=== PATIENT | female | born 1995 | race Caucasian/White ===

== ENCOUNTER 2016-12-10 12:40 | Inpatient (IN) | payer OTHER ==
[~2016-12-10] VITALS: Ht 165.1 cm; Wt 58.5 kg
[~2016-12-10 12:40] MED LIST: NOMED
[2016-12-10] MEDS ORDERED: Carboprost 250 mCg/mL Inj IM PRN ×2 (13:40→17:50)
[2016-12-10] MEDS ORDERED: Sodium Chloride LOK Flush 10 mL Syringe IVFLUSH PRN (13:40)
[2016-12-10] MEDS ORDERED: Ondansetron 2 mg/mL 2 mL Inj IVPUSH PRN ×3 (13:40→16:30)
[2016-12-10] MEDS ORDERED: Methylergonovine 0.2 mg/mL Inj IM PRN ×2 (13:40→17:50)
[2016-12-10] MEDS ORDERED: Hemorrhage Kit, Post Partum XX ONE ×2 (13:40→17:50)
[2016-12-10] MEDS ORDERED: Lactated Ringer's 1,000 ML IV PRN (13:40)
[2016-12-10] MEDS ORDERED: Oxytocin 10 Unit/mL Inj IM PRN ×2 (13:40→17:50)
[2016-12-10] MEDS ORDERED: Oxytocin 30 Units/500 mL LR 30 UNITS in IV Premix 1 EACH IV PRN ×2 (13:40→17:50)
[2016-12-10 13:44] LABS: Mean Corpuscular Hemoglobin 29.3 pg (27.0-35.0); Mean Corpuscular Volume 89.3 fL (81-100)
[2016-12-10] MEDS ORDERED: Lactated Ringer's 500 ML IV ONE (13:45)
[2016-12-10] MEDS ORDERED: EPHEDrine Sulfate 50 mg/mL Inj IVPUSH PRN (13:45)
[2016-12-10] MEDS ORDERED: Atropine 1 mg/10 mL (Code) Syringe IVPUSH PRN (13:45)
[2016-12-10] MEDS ORDERED: fentaNYL 2 mCg/mL-Bupiv 0.125% 100 ML EPIDURAL SCH (13:45)
[2016-12-10] MEDS ORDERED: fentaNYL-PF 50 mCg/mL 2 mL Inj ONE (14:15)
[2016-12-10] MEDS: Lactated Ringer's 1,000 ML IV SCH ×2 (14:44→16:18)
--- NOTE | 2016-12-10 15:01 | PCM.HPANE ---
Patient Data Date of Service: Dec 10, 2016 Surgeon Admitting Provider:Matty Smith MD Attending Provider:Matty Smith MD Primary Care Physician:Johnathan Banerjee MD Other Provider:Andres Timmons Anesthesia Reason for Visit Term Labor TERM LABOR Ht/WT & BMI Height (Centimeters): 165 Weight (Kilograms): 58.5 Body Mass Index 21.5 Allergies Coded Allergies: No Known Allergies (Verified Allergy, Unknown, 04/06/16) Past Anesthesia History Anesthesia History: Denies:: Fam Anesthesia Reaction, Fam Malignant Hypertherm , Malignant Hyperthermia Diabetes History Hx Diabetes?: No MRSA MRSA: No Medications Hypertension Medication: No Home Meds Incl Beta Deven: No Reported Medications No Historical Medication Ea 08/27/12 History History of ENT Problems?: No Hx of Heart Problems?: No Cardiovascular History: Denies:: Congestive Heart Failure Hypertension Hx of Respiratory Problem?: No Respiratory History: Denies:: Tuberculosis Hx Neurologic Problems?: No Hx of GI Problems?: No Hx of Problems?: No Female Hx: Positive for:: Currently Hx Musculoskeletal Problems?: Yes Hx of Psycho/Social Problems?: Yes Psycho Social History: Positive for:: Bipolar Disorder (per family) Denies:: Anxiety Hx Depression Suicide Attempt Hx Surgeries?: Yes Hx Any Other Health Problems?: No Other History: Denies:: Cancer Endocrine Disease Hospitalization Thyroid Disease Hx Diabetes: No Hx Alcohol Use: NoHx Substance Use: Yes (marijuana) Smoking Status: Current Every Day Smoker Have You Smoked inLast 12 mo: Yes Stop/Bang MONICA Risk Assessment: Low Risk, <3 Yes Risk Assessment Category Category 1A: Patient has history of documented sleep apnea, and HAS NOT received any narcotic, sedative or anesthesia administration during this stay. Category 1B: Patient has history of documented sleep apnea, and HAS received any narcotic , sedative or anesthesia administration during this stay Category 2: Patient has SUSPECTED Obstructive Sleep Apnea, and HAS received any narcotic , sedative or anesthesia administration during this stay. Category 3: Patient has SUSPECTED Obstructive Sleep Apnea and HAS NOT received narcotic, sedative or anesthesia administration during this stay. Category 4: Outpatient in Procedural Areas with known sleep apnea or who screen positive for High Risk via the STOP/BANG questionnaire. Exam Exam General Appearance: Alert, Oriented X3, Cooperative HEENT/AIRWAY: Neck Movement (wnl), Mouth Opening (Wide) Lungs: Clear to Auscultation Heart: Regular Rate/Rhythm, Normal S1, Normal S2 Meds/Labs/Diagnostics Labs Test 12/10/16 13:34 White Blood Count 9.4th/mm3 (3.8-10.1) Red Blood Count 3.82mil/mm3 (3.90-5.20) Hemoglobin 11.2g/dL (12.0-15.6) Hematocrit 34.1% (35.0-46.0) Mean Corpuscular Volume 89.3fL (81-100) Mean Corpuscular Hemoglobin 29.3pg (27.0-35.0) Mean Corpuscular Hemoglobin Concent 32.8% (32.0-37.0) Red Cell Distribution Width 13.4% (12.3-15.4) Platelet Count 284bil/L (150-400) Plan Impression Patient chart reviewed, patient interviewed and anesthestic plan with risks, benefits, and alternatives discussed, and informed consent obtained. NPO Status: confirmed before mn ASA Physical Status: ASA2 Mod Systemic Disease Anesthetic Plan: Epidural Bene/Risks/Altern/Consents: Yes HP Complete Prior to Induction: Yes Maurice Verde MD Dec 10, 2016 13:48
[2016-12-10] MEDS ORDERED: Sodium Chloride LOK Flush 10 mL Syringe IVFLUSH SCH (16:30)
--- NOTE | 2016-12-10 16:58 | PCM.HPOB ---
Subjective Date of Service: Dec 10, 2016 Referring Provider: Admitting Physician: Matty Smith MD Primary Care Physician: Johnathan Banerjee MD Attending Physician: Matty Smith MD Chief Complaint Term History of Present History of Present Illness 21 y/o female at 38+ weeks per 25wk ultrasound on 09/14/16 presenting to the [facility] with contractions after SROM around 11:00am. complicated by late entry to care at 31wks, chlamydia infection (10/24/16) with questionable compliance with treatment, difficult social situation and marijuana use. Per the patient's family she has a history of Bipolar disorder, patient denies. UDS on 09/25/16 positive for cannabis and opiates with repeat UDSx2 positive only for cannabis. Admission UDS positive for cannabis only. She [facility] on 11/27/16 at 36wks 2days and received letters for several missed appointments. Patient declined pelvic exam and pap at time of GBS swab.GBS is negative. Per chart review the patient contemplated adoption and the father of the baby did not want her to proceed. FOB tested positive for chlamydia, was not treated and patient endorsed having intercourse with him after he was released from [facility] [facility]. She states that she completed the second course of antibiotics and has stopped her relationship with the FOB. Labs: Blood type: A Rh (D) type positive Antibody screen negative GBS negative Varicella and Rubella immune RPR- nonreactive HBsAg- negative HIV screen- nonreactive GTT negative HbA1c 5.3 TSH 1.040 UDS +Cannabis & opiates with repeat UDS +for Cannabis only . OB History: (1), Para (0) Obstetrical Complications: Other (Late presentation to care, +chlamydia w/poor compliance w/treatment, tobacco/marijuana use & difficult social situation) Past Medical History Obstetrical History: None Gynecologic History: Positive for Chlamydia during Medical History: Substance abuse Left, 5th metacarpal shaft fracture Surgical History: ORIF Left, 5th metacarpal shaft fracture. February 2016 Irrigation & non-excisional debridement of Left hand open wound Social History: Lives alone in [place]. Mother is present and supportive. May move in with her mother . Works part-time cleaning homes Reports marijuana use Denies tobacco,EtOH or other illicit substances. Hx Tobacco Use: No Smoking Status: Former Smoker Hx Alcohol Use: No Hx Substance Use: Yes (Clinic- UDS+Cannabis, admission UDS+Cannabis) Past Family History Family History Father- Basal cell carcinoma Mother- Diabetes mellitus Living Arrangement: Alone Genetic Screening/Counseling Genetic Screening/Counseling: Negative Baby father-had child w defect: No Review of Systems Constitutional: Y: Pain, Fever Eyes: Denies: Vision Changes ENT: Denies: Nasal Congestion, Ulcers/Sores in Mouth Cardiovascular: Denies: Chest Pain, Edema Respiratory: Denies: Cough Gastrointestinal: Reports: Nausea, Denies: Vomiting Genitourinary: Denies: Dysuria, Hematuria Skin: Reports: Scars Neurological: Denies: Confusion, Dizziness Medications Home medications 28mg iron-800mcg, PO daily Ferrous sulfate 325mg, PO daily Allergy Coded Allergies: No Known Allergies (Verified Allergy, Unknown, 04/06/16) Exam Vital Signs Temp 36.0, BP 134/82, HR 64 Exam 130bpm. Moderate variability. Accelerations present. One early deceleration noted. Category 1 tracing. Constitutional: Well-developed HEENT: Atraumatic, Mucous Membr Moist/[place] Lungs: Clear to Auscultation Heart: Regular Rate/Rhythm Abdomen: Gravid, Normal bowel sounds Extremities: Pulses Palpable x4, Edema Skin: Other (hyperpigmented macules of varying sizes scattered on upper/lower extremities. ) Neurological/Psychiatric: Alert, Oriented X3, Cooperative Neuro: Grossly Neurologically Intact Labs/Diagnostics Labs White Blood Count 9.4, Red Blood Count 3.82, Hgb 11.2, Hct 34.1, MCV 89.3, Plt Count 284 Labs: Blood type: A Rh (D) type positive Antibody screen negative GBS negative Varicella and Rubella immune RPR- nonreactive HBsAg- negative HIV screen- nonreactive GTT negative HbA1c 5.3 TSH 1.040 UDS +Cannabis & opiates with repeat UDS +for Cannabis only [facility] OB Ultrasound (09/14/16)- Single, live intrauterine gestation measuring 25wks 5days. VERNON 12/23/16. Repeat Ultrasound for SGA (11/20/16)- Single, live intrauterine gestation in vertex presentation and no placental previa. EGA from first dating scan (09/14/16): 35wks 2days EGA from repeat scan (11/20/16): 34wks 0days . Maternal Blood Type: A Hx Rho(D) Immune Globulin: Yes Group B Strep Results: Negative Rubella: Immune Lab History: Negative for: Hx Chicken Pox, Hx Gonorrhea, Hx HIV, Hx Syphilis Additional Information Positive Chlamydia 10/24/16 OB Intrapartum Assessment/Plan Assessment 21y/o at 38+ weeks per ultrasound (09/14/16) who presented with contractions and SROM. complicated by limited care, marijuana use, chlamydia infection with questionable compliance with treatment, and difficult social situation. Found to be 3-4cm dilated, 95% effaced and -1 station in OB triage. Now s/p Epidural with anticipated . status is reassuring. Pain Management: Epidural Pain Evaluation: Adequate Pain Control (Epidural ) Post plan: Continue routine post care (Consider SW consult, pt declined resources in outpatient setting. ) Attending Statement 1. UDS ordered. 2. Social work consultation planned. 3. GC/CT swab collected upon arrival. 4. Active labor - anticipate . 5. Epidural per anesthesia. I saw the patient and agree with the above H&P. / MD Tino Dodd Courtney M DO Dec 10, 2016 14:30 Matty Smith MD Dec 10, 2016 18:08
[2016-12-10] MEDS ORDERED: Lactated Ringer's 1,000 ML IV SCH (17:49)
[2016-12-10] MEDS ORDERED: Witch Hazel-Glycerin Pads TOPICAL PRN (17:50)
[2016-12-10] MEDS ORDERED: LANOlin HPA 7 Gm Ointment TOPICAL PRN (17:50)
[2016-12-10] MEDS ORDERED: HYDROcodone-APAP 5-325 mg Tablet PO PRN (17:50)
[2016-12-10] MEDS ORDERED: Benzocaine (Dermoplast) 20% 60 Gm Spray TOPICAL PRN (17:50)
--- NOTE | 2016-12-10 18:04 | PCM.OBVAG ---
Vaginal Delivery Date of Service Dec 10, 2016 Pre Operative Diagnosis Pre Operative Diagnosis 1. 38w1d gestation in active labor 2. Cannaboid use 3. Bipolar d/o 4. Chlamydia during Post Operative Diagnosis Post Operative Diagnosis 1. 38w1d gestation in active labor 2. Cannaboid use 3. Bipolar d/o 4. Chlamydia during Procedure Obstetical Procedure: Normal Spontaneous Vaginal Delivery Education Finance Processor/Swiss Machinist Provider and Swiss Machinist: MD Pam Hernandez, DO, HO1 Indication for Procedure Indication for Procedure 21 y/o female at 38 weeks 1 day per 25wk ultrasound on 09/14/[address] [facility] with contractions after SROM around 11:00am. complicated by late entry to care at 31wks, chlamydia infection (10/24) with questionable compliance with treatment, difficult social situation and marijuana use. Per the patient's family she has a history of Bipolar disorder, patient denies. UDS on 09/25/16 positive for cannabis and opiates with repeat UDSx2 positive only for cannabis. Admission UDS positive for cannabis only. She [facility] last seen [facility] on 11/27/16 at 36wks 2days and received letters for several missed appointments. Patient declined pelvic exam and pap at time of GBS swab.GBS is negative. She arrived to L&D ruptured in active labor on 12/10/2016. She progressed normally through labor and was found to be complete. Findings Findings: Small bilateral labial lacerations, superficial not requiring repair. No cervical lacerations. Obstetrical Findings: (Male), Cord (3 Vessel), Weight (2820 grams), Presentation (Vertex), 1 minute (8), 5 minutes (9), Placenta (Intact/Normal), Perineal Laceration (None) Analgesia/Medications Obstetrical Anesthesia: Epidural Procedure Details Procedure Details A sterile drape was placed below the patient's buttocks. With some coaching as patient was having a difficult time tolerating pain of labor, with expulsive efforts she delivered the head over an intact perineum. A nuchal cord was reduced. With additional expulsive efforts she delivered the infant. Active warming and stimulation applied. After 1 minute the cord was clamped and cut. Cord blood collected. The placenta delivered intact. Massage of the fundus performed and normal lochia noted. Examination revealed small superficial bilateral labial lacerations. Sponge, needle and instrument counts were correct x 2. Specimen None sent IV Intake/Output Catheters: None Blood Loss & Administration Estimated Blood Loss: 200 (mL) Post Procedure Plan Post delivery Condition: Mom stable, Baby stable to nursery Matty Smith MD Dec 10, 2016 18:04
--- NOTE | 2016-12-10 18:09 | PCM.ANEP1 ---
Post Anesthesia Phase 1 PACU Phase 1 Assessment Date of Service: Dec 10, 2016 Vital Signs See OB documentation Anesthetic Administered: Epidural Level of Alertness: Awake, talking HALL's with Equal Strength: No Pain: Yes Pain Scale Score: 6 Oxygen Delivery: Room Air Maurice Verde MD Dec 10, 2016 18:09
[2016-12-10 22:29] LABS: Mean Corpuscular Hemoglobin 29.7 pg (27.0-35.0); Mean Corpuscular Volume 89.5 fL (81-100)
[2016-12-11] MEDS ORDERED: IBUP800T28 PO (06:58)
[2016-12-11] MEDS ORDERED: PREN1TAB87 PO (06:58)
[2016-12-11] MEDS ORDERED: HYDR-4003 PO (06:58)
[2016-12-11] MEDS ORDERED: ASCO-294 PO (06:58)
[2016-12-11] MEDS ORDERED: DOCU-41 PO (06:58)
--- NOTE | 2016-12-11 09:19 | NUR ---
received social work referral. advised POWER TOOL REPAIR TECHNICIAN.
--- NOTE | 2016-12-11 12:05 | NUR ---
Social Work Note: Referral Received CORK INSULATION SETTER spoke with Pt's RN and was informed that Pt preferred to speak with CORK INSULATION SETTER when FOB is out of the room. Pt's RN agreed to call CORK INSULATION SETTER when it was possible to speak with Pt alone. Kimberly Godinez, ALFONSO, AAC
--- NOTE | 2016-12-11 18:41 | PCM.DIMED ---
YumikoMissael DO 12/11/16 0654: Discharge Instructions Date of Service Dec 11, 2016 Dates of Hospitalization Dec 10, 2016 at 12:40 pm Discharge Diagnosis Discharge Diagnosis Spontaneous rupture of membranes Normal spontaneous vaginal delivery Positive urine cannabis Medication Instructions Hydrocodone -acetaminophen 5/325 mg, take 1 tab q4-6h PO PRN for pain, #30 Colace 100 mg BID PO PRN for constipation #80 Ferrous sulfate 325 mg PO daily, #90 Vitamin C 500 mg PO daily, #90. Take with iron Ibuprofen 800mg, take 1 tab q8h PO PRN for pain #42 Diet No restrictions Activity Other (no heavy lifting for 2-4 weeks. be up and about. Activity and rest as energy and pain allows) Patient Instructions Continue your vitamin. Please take the iron and vitamin c together for your anemia. Do not take more pain medication Vicodin than is necessary -- less is better. Vicodin pills have Tylenol (acetaminophen) in them at 325mg per pill. Do not take Tylenol in addition to your pain medication but should take one or the other. Both iron and Vicodin can give you constipation so you have also been given a prescription for docusate to keep you regular. Be sure to follow up in 2 weeks and then again in 6 weeks at [facility]. ( Follow up for without complications is 6 weeks) Pelvic rest for 6 weeks (nothing per vagina including intercourse, tampons) If you have a fever greater than 100.4, please call [facility]. There is always someone relations specialist to talk to. If you have an increase in bleeding, call [facility]. If you have a lot of bleeding suddenly, especially if you have symptoms of dizziness & weakness with it, get emergency help. When you see [facility] in two weeks, you will be informed of the results of all the labs. If you start experiencing extreme depression, especially if you feel that you are a danger to yourself or your family, seek emergency help. You have been through a lot -- BE SURE TO TAKE CARE OF YOURSELF. Follow-up plan Follow-up in 4-6 weeks at [facility] Sammi Carmichael MD 12/11/16 1294: Discharge Instructions Diet No restrictions Call your provider Fever or Chills, Shortness of breath, Chest pain, Vomitting, Excessive diarrhea Attending's Statement I saw patient and agree with above plan Missael Calderon DO Dec 11, 2016 06:54 Sammi Carmichael MD Dec 11, 2016 18:41
--- NOTE | 2016-12-11 18:44 | PCM.DC.OB ---
Obstetrical Discharge Summary Date of Service Dec 11, 2016 Date of hospital admission Dec 10, 2016 at 12:40 pm Date of Discharge: Dec 11, 2016 Providers Admitting Physician: Matty Smith MD Primary Care Physician: Johnathan Banerjee MD Attending Physician: Matty Smith MD Diagnosis at Time of Discharge Term labor Positive UDS for Cannibis Problems: Brief History and Physical: 21 y/o now female at 38+ weeks per 25wk ultrasound on 09/14/16 presenting to the [facility] with contractions after SROM around 11:00am. complicated by late entry to care at 31wks, chlamydia infection (10/24) with questionable compliance with treatment, difficult social situation and marijuana use. Per the patient's family she has a history of Bipolar disorder, patient denies. UDS on 09/25/16 positive for cannabis and opiates with repeat UDSx2 positive only for cannabis. Admission UDS positive for cannabis only. She was last seen at [facility] on 11/27/16 at 36wks 2days and received letters for several missed appointments. Patient declined pelvic exam and pap at time of GBS swab.GBS is negative. Per chart review the patient contemplated adoption and the father of the baby did not want her to proceed. FOB tested positive for chlamydia, was not treated and patient endorsed having intercourse with him after he was released from [place] [facility]. She states that she completed the second course of antibiotics and has stopped her relationship with the FOB. Labs: Blood type: A Rh (D) type positive Antibody screen negative GBS negative Varicella and Rubella immune RPR- nonreactive HBsAg- negative HIV screen- nonreactive GTT negative HbA1c 5.3 TSH 1.040 UDS +Cannabis & opiates with repeat UDS +for Cannabis only Physical exam on day of discharge 105/58, 61 bpm 16 respirations per minute General: Sitting up, no apparent distress. HEENT: Normocephalic, atraumatic, extraocular muscles intact, nares are patent, mucosa moist. Cardiovascular: Regular rate and rhythm, no clicks murmurs or rubs, 2/4 peripheral pulses radial and dorsal pedalis Pulmonary: Clear to auscultation bilaterally, no wheezing rales or rhonchi Abdominal/GI: Mildly tender to palpation, nondistended, no hepatosplenomegaly, bowel sounds present -Fundal height 2 fingerbreadths below umbilicus Musculoskeletal: Able to move extremities on her own volition, 5 out of 5 strength upper and lower extremities equal bilaterally Lymphatics: No palpable lymph nodes in neck. Extremities: No edema, atraumatic. Hospital Course: Patient presented with spontaneous rupture of membranes, contractions, at term. She had a normal spontaneous vaginal delivery, no perineal lacerations.Gave on 12/10/2016 at 1729 to a male, 6 lbs. 3 oz., Apgars 8 and 9 respectively. Due to her poor care, positive urine drug screen for cannabis, and admitted history for polysubstance abuse while , social work was consulted Ascorbate Calcium (Vitamin C) 500 Mg Tablet 500 MG PO DAILY Prescribed by: MISSAEL MANZANO DO Docusate Sodium (Colace) 100 Mg Capsule 100 MG PO BID Prescribed by: MISSAEL MANZANO DO Hydrocodone-Acetaminophen 5-325 mg (Hydrocodone-Acetaminophen 5-325 mg) 1 Each Tablet 1-2 TABLET PO Q4H PRN PRN For Pain Prescribed by: MISSAEL MANZANO DO Ibuprofen (Ibuprofen) 800 Mg Tablet 800 MG PO Q6H PRN PRN For Pain Prescribed by: MISSAEL MANZANO DO Vit W-Ca,Fe,FA(<1 mg) ( Vitamins) 1 Each Tablet 1 EACH PO DAILY Prescribed by: MISSAEL MANZANO DO Discontinued Medications No Historical Medication (No Historical Medication) Ea (Reported) Discharge Medications: Hydrocodone-Acetaminophen 5/325 mg, take 1 tab q4-6h PO PRN for pain, #30 Colace 100 mg BID PO PRN for constipation #80 Ferrous sulfate 325 mg PO daily, #90 Vitamin C 500 mg PO daily, #90. Take with iron Ibuprofen 800mg, take 1 tab q8h PO PRN for pain #42 Disposition Discharge home. Follow-up plan Follow-up to [facility] in 4-6 weeks Discharge Diet: No restrictions Discharge Activity-General: Pelvic Rest, Try not to overdue, Be up and about, Balance rest and activity, Activity as pain allows Patient instructions Continue your vitamin. Please take the iron and vitamin c together for your anemia. Do not take more pain medication Vicodin than is necessary -- less is better. Vicodin pills have Tylenol (acetaminophen) in them at 325mg per pill. Do not take Tylenol in addition to your pain medication but should take one or the other. Both iron and Vicodin can give you constipation so you have also been given a prescription for docusate to keep you regular. Be sure to follow up in 2 weeks and then again in 6 weeks at [facility]. ( Follow up for without complications is 6 weeks) Pelvic rest for 6 weeks (nothing per vagina including intercourse, tampons) If you have a fever greater than 100.4, please call [facility]. There is always someone continuity person to talk to. If you have an increase in bleeding, call [facility]. If you have a lot of bleeding suddenly, especially if you have symptoms of dizziness & weakness with it, get emergency help. When you see [facility] in two weeks, you will be informed of the results of all the labs. If you start experiencing extreme depression, especially if you feel that you are a danger to yourself or your family, seek emergency help. You have been through a lot -- BE SURE TO TAKE CARE OF YOURSELF. Attending Statement: I saw patient. She doing well after normal vaginal delivery. Will discharge. Agree with above plan. Missael Calderon DO Dec 11, 2016 06:46 Sammi Carmichael MD Dec 11, 2016 18:44
--- NOTE | 2016-12-11 19:23 | NUR ---
Shift note: Mom is ambulatory and doing all self care. Mom's pain is well managed with meds (reports 0-11/06 pain. FF@U. Able to empty bladder. Mom had lac consult/support. See Lac notes. Mom wanted to go to car to "check on some things" FOB was concerned that she "wanted to go use drugs" and asked if the Baby urine was checked. Mom Had Sample Stitcher consult. See note. Mom wanting to be dc'd tonight.
[2016-12-11 20:01] VITALS: BP 138/89; PULSE 75; RESP 16
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
--- NOTE | 2016-12-12 10:08 | NUR ---
Social Work Note: D/A: STUDENT EDUCATION SPECIALIST made a report to CPS on 12/11/2016 and was informed that Pt's case would screen through for Intake. STUDENT EDUCATION SPECIALIST consulted with Linda Magana who indicated that she would speak with Kira Guerra in Risk Management regarding Pt's case and requested that [facility] Security be updated regarding the potential volatility of Pt's case. Linda Magana also requested STUDENT EDUCATION SPECIALIST call [facility] this morning to follow up on Pt's CPS case. P: STUDENT EDUCATION SPECIALIST called [facility] and was transferred to [facility] ALFONSO Ravenkunal Solorio's voicemail. STUDENT EDUCATION SPECIALIST left a voicemail requesting a call back with an update on when Miss Solorio might be at the hospital to evaluate Pt's case. ALFONSO Gamez, AAC
--- NOTE | 2016-12-12 14:15 | NUR ---
Social Work Note D/A: EDITOR NEWSPAPER was informed that CPS EDITOR NEWSPAPER Raven Solorio was on [facility] to see Pt. EDITOR NEWSPAPER spoke with Raven Solorio, Pt's RN Kimberly Rodriguez and dredge mate Dr Cash and it was decided that a medical hold would be placed on BB to allow CPS to fully investigate and schedule a FTDM to arrange a safe discharge plan for BB. Raven Solorio requested that EDITOR NEWSPAPER accompany her and RN Kimberly Rodriguez to speak with Pt and explain the decision. P: Pt was tearful but cooperative and understanding. Raven Solorio arranged to meet with FOB at CPS later today and indicated taht she was hoping to schedule an FTDM for 12/13/2016. Pt accompanied BB into the nursery and was feeding BB and speaking with her mother when EDITOR NEWSPAPER left [facility]. Kimberly Godinez, ALFONSO, AAC
== END 2016-12-11 21:20 | disposition home or self-care (01) | DRG 560 ==
LOC: FBC 12:40
PROVIDERS: ADMIT Obstetrics & Gynecology; ATTEND Obstetrics & Gynecology
PROC: 10E0XZZ Delivery of Products of Conception, External Approach (ICD-10-PCS; principal; 2016-12-10)
DX: O99.324 Drug use complicating childbirth (principal); F12.929 Cannabis use, unspecified with intoxication, unspecified; Z3A.38 38 weeks gestation of pregnancy; Z37.0 Single live birth

== ENCOUNTER 2017-04-11 11:19 | Emergency (ER) | payer OTHER ==
[~2017-04-11] VITALS: Ht 167.6 cm; Wt 52.7 kg
[~2017-04-11 11:19] MED LIST changes: +ASCO-294 PO; +DOCU-41 PO; +HYDR-4003 PO; +IBUP800T28 PO; -NOMED; +PREN1TAB87 PO
[2017-04-11 11:21] VITALS: BP 124/82; PULSE 149; RESP 22; O2SAT 100
--- NOTE | 2017-04-11 11:33 | ED.REPORT ---
HPI-Rash / Abscess Date of Service Apr 11, 2017 ED Provider: Zeyad Mcgrath MD Pt is a 21 y/o female w/ a hx of facial staph infection, impetigo, presenting to the ED c/o sores on chin. She is requesting Clindamycin gel for a small sore on her face because she was told that she had a staph infection on her face previously and that it would be a recurring problem. She has no other complaints or concerns. The patient does not have a PCP. Nursing Notes Stated Complaint: SKIN INFECTION Chief Complaint: Skin Rash/Abscess Nursing Notes Reviewed: Yes Allergies: Coded Allergies: No Known Allergies (Verified Allergy, Unknown, 04/06/16) Scheduled Ascorbate Calcium (Vitamin C) 500 Mg Tablet 500 MG PO DAILY Clindamycin Phosphate (Clindagel) 40 Ml Gel..ml. 1 APPLIC TP BID Docusate Sodium (Colace) 100 Mg Capsule 100 MG PO BID Vit W-Ca,Fe,FA(<1 mg) ( Vitamins) 1 Each Tablet 1 EACH PO DAILY Scheduled PRN Hydrocodone-Acetaminophen 5-325 mg (Hydrocodone-Acetaminophen 5-325 mg) 1 Each Tablet 1-2 TABLET PO Q4H PRN PRN For Pain Ibuprofen (Ibuprofen) 800 Mg Tablet 800 MG PO Q6H PRN PRN For Pain General Time Seen by MD: 11:30 Chief Complaint Rash Hx Obtained From: Patient Arrived By: Walk-in Onset Occurred: 1 - 4 hours ago Symptom Duration: Since onset Severity: Current: No pain currently Severity: Maximum: No pain Recent Healthcare: Previous diagnosis Similar Sx Previous: Yes Past Medical History Past Medical History Previous staph infections and impetigo Past Surgical History Hand surgery Smoking History Former Smoker Social History Alcohol Use: Denies alcohol use Drug Use: Denies drug use Occupation rug cleaner helper, lives by self Ambulatory Status Independent Review of Systems Constitutional: Denies: Chills, Fever Respiratory: Denies: Non-productive cough, Shortness of breath Skin: Reports Rash, Denies Swelling Complete sys rev & neg: except as marked. Physical Exam Initial Vital Signs Vital Signs (First) Date Time Temp Pulse Resp B/P Pulse Ox O2 Delivery O2 Flow Rate FiO2 04/11/17 11:21 36.5 149 22 124/82 100 Room Air Initial VS: Reviewed, Vital signs abnormal Neck: Supple, Full range of motion Respiratory: Breath sounds normal, Clear to auscultation, No respiratory distress Cardiovascular: Regular rate & rhythm, Heart sounds normal, Intact distal pulses Abdomen / GI: Soft, No distention Extremities: Vascular intact, No swelling Neurologic: Alert, Oriented, Nonfocal Psychiatric: Mood/affect normal, Behavior normal, Normal thought content General/Constitutional: Awake, Alert, No acute distress, Well appearing, Well developed, Well hydrated, Well nourished, Cooperative, Not toxic appearing Skin: Atraumatic, Warm, Dry, Intact, Turgor NL, No swelling Small erythematous 3 mm plaque on chin - appears to be acne Head / Eyes: Atraumatic, Normocephalic, PERRL, EOMI, No periorbital redness, No periorbital swelling, No photophobia ENT: Atraumatic, Airway patent, Mucous membranes moist, Pharynx NL, No pooling of secretions, Ext aud canal NL, No facial swelling, Gums/dentition NL Re-Eval/Medical Decision Med Decision/Clinical Course 21-year-old female history of impetigo and active presenting requesting clindamycin gel for a skin rash on her chin. She reports she always uses clindamycin for this and gets better. She has a small erythematous plaque on her right chin which is covered in makeup therefore difficult to assess. There is no evidence of abscess or cellulitis. Appears like acne. We will give clindamycin gel. She will follow up with primary doctor. Re-Evaluation/Progress : Time of Eval: 11:39 Re-Evaluation/Progress Note: Pt rechecked. Informed pt of plan for treatment. Pt understands and agrees with plan for treatment. F/U instructions and RTER warnings given. All questions addressed. Counseled Regarding: Diagnosis, Need for follow-up, When/why to return to ED Discharge & Departure Impression: Primary Impression: Skin rash Disposition: Home Discharge Condition All VS Reviewed: Yes Condition: Stable Additional Instructions: Use the clindamycin gel as directed. Return to the emergency department for any concerning symptoms. You can go to the [facility] for primary care visits. Referrals: Johnathan Banerjee MD (PCP) [facility] Scribe Attestation Portions of this note were transcribed by Eliseo Ramos. I, Dr. Mcgrath personally performed the history, physical exam and medical decision-making; I reviewed and confirmed the accuracy of the information in the transcribed note. Signed by Toan Odom, 04/11/17 1143 copies to: Johnathan Banerjee MD, Ben M MD Apr 11, 2017 11:33 ELISEO RAMOS Apr 11, 2017 11:39
[2017-04-11] MEDS ORDERED: CLIN40GE TP (11:38)
== END 2017-04-11 11:49 | disposition home or self-care (01) ==
LOC: SED 11:19
DX: R21 Rash and other nonspecific skin eruption (principal); Z87.891 Personal history of nicotine dependence; Z79.899 Other long term (current) drug therapy